=== PATIENT | female | born 1935 | race Caucasian/White ===

== ENCOUNTER → 2020-04-15 | Outpatient (REF) | payer MEDICARE ==
[~2020-04-15] MED LIST: AMLO5TAB6 PO; BIMA01SOL OU; BRIN1OPH OU; BYST5TAB2 PO; CHLO125TA PO; DIOVAN PO; PRAVASTATIN PO; PROT1TAB2 PO; SPIR50TA4 PO; TYLE325T5 PO; ULTR50TA8 PO; VITA-243 PO; XARELTO PO; ZOFR4TAB16 PO
[2020-04-15 17:41] LABS: INR 1.05; PROTHROMBIN TIME 13.4 SECONDS (11.8-14.0)
== END ==
LOC: M LAB REF 16:16
PROVIDERS: ATTEND Internal Medicine
DX: Z01.818 Encounter for other preprocedural examination (principal); I70.213 Atherosclerosis of native arteries of extremities with intermittent claudication, bilateral legs; D69.8 Other specified hemorrhagic conditions

== ENCOUNTER → 2021-08-27 | Outpatient (CLI) | payer MEDICARE ==
[~2021-08-27] MED LIST changes: +AMLO1TAB24 PO; -AMLO5TAB6 PO
== END ==
LOC: M LABSMTC 12:08
PROVIDERS: ATTEND Family Medicine
DX: Z20.822 Contact with and (suspected) exposure to COVID-19 (principal)
CPT/HCPCS: C9803; U0003

== ENCOUNTER 2023-08-07 12:12 | Emergency (ER) | payer MEDICARE ==
[~2023-08-07] VITALS: Ht 154.9 cm; Wt 55.9 kg
[2023-08-07] MEDS ORDERED: LIDOCAINE W/EPINEPHRINE 1% 20ML VIAL As Ordered ONE (12:46)
[2023-08-07] MEDS ORDERED: LIDOCAINE W/EPINEPHRINE 1% 20ML VIAL SC ONE (12:50)
[2023-08-07 13:11] VITALS: BP 162/72; TEMP 98; O2SAT 97
== END 2023-08-07 13:22 | disposition home or self-care (01) ==
LOC: M ED 12:12
DX: S01.01XA Laceration without foreign body of scalp, initial encounter (principal); W01.198A Fall on same level from slipping, tripping and stumbling with subsequent striking against other object, initial encounter; R91.1 Solitary pulmonary nodule; I10 Essential (primary) hypertension; K21.9 Gastro-esophageal reflux disease without esophagitis; Z79.1 Long term (current) use of non-steroidal anti-inflammatories (NSAID); Z79.83 Long term (current) use of bisphosphonates; Z79.899 Other long term (current) drug therapy